=== PATIENT | female | born 1965 | race Hispanic/Latino ===

== ENCOUNTER 2020-06-15 14:52 | Emergency (ER) | payer BC ==
[2020-06-15 15:14] VITALS: BP 155/78
== END 2020-06-15 17:35 | disposition left against medical advice (07) ==
LOC: ED 14:52
DX: R10.2 Pelvic and perineal pain (principal); M54.5 Low back pain; Z53.21 Procedure and treatment not carried out due to patient leaving prior to being seen by health care provider